=== PATIENT | female | born 1985 | race Caucasian/White ===

== ENCOUNTER 2022-04-28 19:55 | Emergency (ER) | payer OTHER ==
[2022-04-28] MEDS ORDERED: EPINEPHrine 1 MG/ML SDV IM ONE (20:04)
[2022-04-28] MEDS ORDERED: Ondansetron 4 MG/2 ML SDV IVPUSH ONE (20:04)
[2022-04-28] MEDS ORDERED: Famotidine 20 MG/2 ML SDV IVPUSH ONE (20:04)
[2022-04-28] MEDS ORDERED: methylPREDNISolone Sodium Succinate 125 MG/2 ML SDV IV ONE (20:04)
[2022-04-28] MEDS ORDERED: Ondansetron 4 MG/2 ML SDV ONE (20:07)
[2022-04-28] MEDS ORDERED: Famotidine 20 MG/2 ML SDV ONE (20:07)
[2022-04-28] MEDS ORDERED: Sodium Chloride 0.9% 1,000 ML IV SCH (20:15)
[2022-04-28] MEDS ORDERED: Albuterol 0.083% 2.5 MG/3 ML Neb Soln NEB SCH (20:15)
== END 2022-04-28 23:09 | disposition home or self-care (01) ==
LOC: JP.ED 19:55
DX: T78.2XXA Anaphylactic shock, unspecified, initial encounter (principal); Z91.018 Allergy to other foods
CPT/HCPCS: 94640; 96372; 96374; 96375; 99285; J0171; J2405; J2930; J3490